=== PATIENT | female | born 1955 | race Caucasian/White ===

== ENCOUNTER 2018-06-01 11:11 | Emergency (ER) | payer OTHER ==
[~2018-06-01] VITALS: Ht 165.1 cm; Wt 104.5 kg
[~2018-06-01 11:11] MED LIST: ASPIRIN325 MG PO; NAPROSYN500 MG PO; NEURONTIN 300300 MG PO; NORCO 10/325 TA1 TA1 PO
[2018-06-01 11:34] VITALS: Ht 165.1 cm; Wt 104.5 kg
[2018-06-01] MEDS ORDERED: TOPROL XL50 MG PO (11:35)
[2018-06-01] MEDS ORDERED: VITAMIN D5000 UNIT PO (11:36)
[2018-06-01 12:12] LABS: BASOPHILS 0.6 % (0-2); EOSINOPHILS 1.7 % (0-7); IMMATURE GRANULOCYTES 0.6 % (0-5); LYMPHOCYTES 27.9 % (15-50); MCH 28.2 pg (26.0-34.0); MCHC 34.1 g/dL (31.0-37.0); MCV 82.9 fL (80.0-100.0); MEAN PLATELET VOLUME 9.6 fL (7.4-10.4); MONOCYTES 7.3 % (2-11); NEUTROPHILS 61.9 % (40-80); PLATELET COUNT 148 10x3/uL (130-400); RBC 5.31 10x6/uL (4.00-5.40); RDW 13.7 % (11.5-14.5)
[2018-06-01 12:31] LABS: ALBUMIN 3.4 g/dL (3.4-5.0); ALKALINE PHOSPHATASE 165 U/L (46-116); ALT (SGPT) 25 U/L (10-68); BILIRUBIN - TOTAL 0.26 mg/dL (0.2-1.3); CALC OSMOLALITY 277 mosm/kg (275-300); CARBON DIOXIDE 27.2 mmol/L (21.0-32.0); CHLORIDE - SERUM 104 mmol/L (98-107); CREATININE - SERUM 0.8 mg/dL (0.6-1.3); GLUCOSE 98 mg/dL (74-106); POTASSIUM - SERUM 4.5 mmol/L (3.5-5.1); PROTEIN - SERUM 7.1 g/dL (6.4-8.2); SODIUM 139 mmol/L (136-145); UREA NITROGEN 12 mg/dL (7-18); eGFR NON AFRICAN AMERICAN 77 mL/min (90-120)
[2018-06-01 12:42] LABS: INR 0.92 (0.85-1.17)
[2018-06-01 12:43] LABS: APTT 28.6 SECONDS (22.8-39.4); CREATINE KINASE 62 UL (21-215); MAGNESIUM - SERUM 1.9 mg/dL (1.8-2.4); PRO BNP 142 pg/mL (0-125); TROPONIN-I < 0.017 ng/mL (0.000-0.060)
[2018-06-01 12:44] LABS: D-DIMER-QUANTITATIVE 0.56 ug/mLFEU (0.20-0.54); HELICOBACTER PYLORI IGG NEGATIVE (NEGATIVE)
[2018-06-01] MEDS ORDERED: CARAFATE1 G PO (16:36)
[2018-06-01] MEDS ORDERED: OMEPRAZOLE40 MG PO (16:36)
[2018-06-01 17:00] VITALS: BP 156/84
== END 2018-06-01 17:01 | disposition home or self-care (01) ==
LOC: D.ER 11:11
PROVIDERS: Family Medicine
DX: K21.9 Gastro-esophageal reflux disease without esophagitis (principal); R07.9 Chest pain, unspecified; I10 Essential (primary) hypertension; F17.200 Nicotine dependence, unspecified, uncomplicated; Z79.82 Long term (current) use of aspirin